=== PATIENT | female | born 1970 | race American Indian/Alaskan Native ===

== ENCOUNTER 2017-02-17 19:34 | Emergency (ER) | payer SELFPAY ==
[2017-02-17] MEDS ORDERED: NACL 0.9% 500 ML 500 ML IV ONE (22:17)
[2017-02-17] MEDS ORDERED: TYLENOL PO ONE (22:17)
--- NOTE | 2017-02-17 22:27 | Emergency Department Report ---
HPI - General Chief Complaint: Dyspnea/Respdistress Time Seen by Provider: 02/17/17 22:03 - HPI HPI: This is a 46-year-old -[place] female presents to the emergency department with a complaint of a three-day history of a frontal headache and uncontrolled blood pressure. Patient says she was previously diagnosed with hypertension but she lost her insurance, does not have a primary care physician , and therefore has not taken any medication for over a year. She is a former smoker. She took some Tylenol for her headache with some relief. She denies any vision change, slurred speech, chest pain, nausea, vomiting, diarrhea, dysuria. No recent travel or sick contacts at home. ED Past Medical Hx - Medications Home Medications: Home Medications Medication Instructions Recorded Confirmed Last Taken Type ALBUTEROL Inhaler [ProAir HFA 2 puff IH QID PRN #1 inhalation 02/18/17 Unknown Rx Inhaler] Azithromycin [Zithromax Z-GARY] 250 mg PO DAILY #6 tab 02/18/17 Unknown Rx ED Review of Systems ROS: Stated complaint: FEVER/MELY Other details as noted in HPI Comment: All other systems reviewed and negative Constitutional: denies: diaphoresis, weakness Eyes: denies: eye pain, eye discharge, vision change ENT: denies: ear pain, throat pain Respiratory: denies: cough, shortness of breath, wheezing Cardiovascular: denies: chest pain, palpitations Gastrointestinal: denies: abdominal pain, nausea, diarrhea Genitourinary: denies: urgency, dysuria, discharge Musculoskeletal: denies: back pain, joint swelling, arthralgia Skin: denies: rash, lesions Neurological: headache. denies: weakness, numbness, paresthesias Physical Exam - Physical Exam Vital Signs: Vital Signs 02/17/17 02/17/17 20:06 22:08 Temperature 98.7 F 102.8 F H Pulse Rate 117 H 115 H Respiratory 18 Rate Blood Pressure 157/102 Blood Pressure 152/93 [Left] O2 Sat by Pulse 98 98 Oximetry Physical Exam: GENERAL: The patient is well-developed well-nourished. HEENT: Normocephalic. Atraumatic. Extraocular motions are intact. Patient has moist mucous membranes. Pupils equal reactive to light bilaterally. No nystagmus. Oropharynx is clear. NECK: Supple. Trachea is midline. CHEST/LUNGS: Clear to auscultation. Occasional cough heard during examination. There is no respiratory distress noted. HEART/CARDIOVASCULAR: Regular. There is mild tachycardia. There is no gallop rub or murmur. ABDOMEN: Abdomen is soft, nontender. Patient has normal bowel sounds. There is no abdominal distention. Obese habitus. SKIN: Skin is warm and dry. NEURO: The patient is awake, alert, and oriented. The patient is cooperative. The patient has no focal neurologic deficits. The patient has normal speech. Cranial nerves II through XII grossly intact. MUSCULOSKELETAL: There is no tenderness or deformity. There is no limitation range of motion. There is no evidence of acute injury. ED Course Vital Signs 02/17/17 02/17/17 20:06 22:08 Temperature 98.7 F 102.8 F H Pulse Rate 117 H 115 H Respiratory 18 Rate Blood Pressure 157/102 Blood Pressure 152/93 [Left] O2 Sat by Pulse 98 98 Oximetry ED Medical Decision Making - Lab Data Result diagrams: 02/17/17 22:33 02/17/17 22:33 - EKG Data -: EKG Interpreted by Me EKG shows normal: sinus rhythm, axis, intervals, QRS complexes, ST-T waves (T- wave inversions to the lateral and inferior leads) Rate: tachycardia (109 bpm) - EKG Data When compared to previous EKG there are: previous EKG unavailable Interpretation: other (sinus tachycardia, T-wave inversions to the inferior and lateral leads) - Radiology Data Radiology results: report reviewed, image reviewed interpreted by me: Chest x-ray does not show any significant cardiomegaly, pleural effusions or pneumothorax. There is some atelectasis versus infiltrate in the right lower lung. CT of the head does not show any acute process including no hemorrhage, mass, shift, diffuse edema or skull fracture. CT angiography of the chest does not show any pulmonary embolism or aortic dissection but does show a right lower lung pneumonia. - Medical Decision Making 46-year-old female presents to the emergency department with complaint of a 3 day history of intermittent frontal headache, and some hypertension issues. She presents with a fever 102.5 Fahrenheit. There was some complaint of occasional shortness of breath and/or cough. Her labs show a leukocytosis of about 15,000. Negative troponins 2. EKG shows some T-wave inversions but no signs of ST elevation SD or dysrhythmia. The d-dimer was slightly elevated so a CT angiography of the chest was done that showed a right lower lobe pneumonia. Patient received some IV fluid. She was reevaluated multiple times for multiple hours and says she is feeling improved. She hadn't complained of chest pain at any point. Vital signs stable throughout her ED course. The temperature was rechecked and the fever had resolved without any significant antepyretic's. Since the patient is feeling improved, does not appear to have any respiratory distress, has resolution of her fever, and stable vitals without any hypoxia, the patient appears safe to treat her pneumonia outpatient to start. She was given the first dose of antibiotics here and written for a course of azithromycin. She was also given an albuterol inhaler. She was given referrals for primary care for follow-up. She will return to the ER with any worsening of her symptoms, any respiratory distress, intractable fever, development of chest pain, or any acute distress. - Differential Diagnosis pneumonia, SD, tension headache, migraine, viral syndrome Critical Care Time: No Critical care attestation.: If time is entered above; I have spent that time in minutes in the direct care of this critically ill patient, excluding procedure time. ED Disposition Clinical Impression: Pneumonia Qualifiers: Pneumonia type: due to unspecified organism Laterality: right Lung location: lower lobe of lung Qualified Code(s): J18.1 - Lobar pneumonia, unspecified organism Hypertension Qualifiers: Hypertension type: essential hypertension Qualified Code(s): I10 - Essential ( primary) hypertension Headache Qualifiers: Headache type: unspecified Headache chronicity pattern: episodic headache Intractability: not intractable Qualified Code(s): R51 - Headache Disposition: DC-01 TO HOME OR SELFCARE Is pt being admited?: No Condition: Stable Instructions: Community-acquired Pneumonia (ED), Hypertension (ED) Additional Instructions: Please follow-up with a primary care physician as soon as possible. Take the antibiotics as prescribed. You can use Tylenol every 4 hours and ibuprofen every 6 hours, using weight-based dosing, as needed for fever or discomfort. Try to stay away from foods that are high in salt and caffeinated products to help with your blood pressure. Keep a blood pressure log. Return to the emergency department with any worsening of her symptoms, intractable fever, shortness of breath, chest pain, or any acute distress. Prescriptions: ALBUTEROL Inhaler [ProAir HFA Inhaler] 2 puff IH QID PRN #1 inhalation PRN Reason: Shortness Of Breath Azithromycin [Zithromax Z-GARY] 250 mg PO DAILY #6 tab Referrals: PRIMARY CARE,MD [Primary Care Provider] - 3-5 Days [facility], Located Within [facility] [Outside] - 3-5 Days [facility] [Outside] - 3-5 Days [facility] [Outside] - 3-5 Days Time of Disposition: 03:21
[2017-02-17 23:00] LABS: Basophils % (Auto) 0.1 % (0.0-1.8); Hematocrit 34.8 % (30.3-42.9); Hemoglobin 11.7 gm/dl (10.1-14.3); Mean Corpuscular HGB Conc 34 % (30-34); Mean Corpuscular Hemoglobin 29 pg (28-32); Mean Corpuscular Volume 86 fl (79-97); Platelet Count 291 K/mm3 (140-440); Red Blood Count 4.04 M/mm3 (3.65-5.03); White Blood Count 15.9 K/mm3 (4.5-11.0)
[2017-02-17 23:10] LABS: Alanine Aminotransferase 20 units/L (7-56); Albumin 3.7 g/dL (3.9-5); Albumin/Globulin Ratio 0.9 %; Alkaline Phosphatase 88 units/L (35-129); Anion Gap 22 mmol/L; BUN/Creatinine Ratio 7.14; Blood Urea Nitrogen 5 mg/dL (7-17); Calcium 9.2 mg/dL (8.4-10.2); Carbon Dioxide 24 mmol/L (22-30); Chloride 94.3 mmol/L (98-107); Creatine Kinase 232 units/L (30-135); Glucose 110 mg/dL (65-100); Potassium 3.5 mmol/L (3.6-5.0); Sodium 137 mmol/L (137-145); Total Protein 7.9 g/dL (6.3-8.2)
[2017-02-17 23:38] LABS: Creatine Kinase MB < 1.0 ng/mL (0.0-4.0)
[2017-02-18 00:02] LABS: Urine Drugs of Abuse Note Disclamer
[2017-02-18 00:10] LABS: Bilirubin,Urine NEG (Negative); Blood,Urine SM (Negative); Ketones,Urine TR mg/dL (Negative); Leukocyte Esterase,Urine NEG (Negative); Mucus,Urine 3+ /HPF; Nitrite,Urine NEG (Negative)
[2017-02-18] MEDS ORDERED: NACL ONE (00:52)
--- NOTE | 2017-02-18 00:53 | Cat Scan Report ---
FINAL REPORT EXAM: CT HEAD/BRAIN WO CON HISTORY: CHRISTOPHER TECHNIQUE: CT imaging acquired through the head without intravenous contrast. Transaxial reformations are provided. PRIORS: None. FINDINGS: The ventricles, cisterns and sulci are within normal limits. No intraparenchymal or extra-axial mass, hemorrhage, or mass effect. Colindres and white-matter differentiation is within normal limits. Normal spherical shape of the globes. Paranasal sinuses and mastoid air cells are clear. No skull or facial fracture visualized. IMPRESSION: No acute intracranial abnormality. Consider follow-up MRI as warranted.
--- NOTE | 2017-02-18 02:53 | Cat Scan Report ---
FINAL REPORT PROCEDURE: CT ANGIO CHEST TECHNIQUE: Computerized tomographic angiography of the chest was performed after the IV injection of iodinated nonionic contrast including image processing. The image data was postprocessed using 2-dimensional multiplanar reformatted (MPR) and 3-dimensional (MIP and/or volume rendered) techniques. HISTORY: SOB, elevated dimer FEVER COMPARISON: No prior studies are available for comparison. FINDINGS: Heart and pericardium: Normal. Thoracic aorta: Normal. Pulmonary vasculature: Normal. Lymph nodes: No enlarged thoracic lymph nodes. Lungs: There is a consolidation in the right lower lung laterally. The remainder of the right and the left lungs are clear. The central airway is patent. Pleural space: No effusion, thickening, or pneumothorax. Musculoskeletal structures: No significant abnormality. Upper abdominal structures: There is a cyst off the medial left renal cortex, this not fully evaluated on this study.. IMPRESSION: Right lower lung pneumonia.
[2017-02-18] MEDS ORDERED: ZITHROMAX PO ONE (03:20)
[2017-02-18 03:32] VITALS: BP 144/86
--- NOTE | 2017-02-18 07:25 | XRay Report ---
AP CHEST: HISTORY: Dyspnea Patchy infiltrate is suspected in the right lower lobe. Please correlate for pneumonia. The remainder of the lungs are clear. No pleural effusion or pneumothorax. Normal heart and mediastinal structures. Normal bony thorax. IMPRESSION: Right lower lobe infiltrate.
== END 2017-02-18 03:45 | disposition home or self-care (01) ==
LOC: ED 19:34
DX: J18.1 Lobar pneumonia, unspecified organism (principal); I10 Essential (primary) hypertension; R51 Headache
CPT/HCPCS: 36415; 70450; 71010; 71275; 80053; 80307; 81001; 82550; 82553; 84484; 84703; 85025; 85379; 93005; 93010; 96360; 99285; J7040; Q9967